=== PATIENT | male | born 1950 | race Caucasian/White ===

== ENCOUNTER 2020-06-24 09:47 | Day surgery (SDC) | payer MEDICARE ==
[~2020-06-24] VITALS: Ht 182.9 cm; Wt 91.6 kg
[~2020-06-24 09:47] MED LIST: ADLT ASA LOW81 MG PO; ADVIL200 MG PO; AMOXICILLIN500 MG OR; AVELOX400 MG PO; CO Q10 MAX200 MG PO; D32000 UNIT PO; FISH OI1 PO; FISH OIL1000 MG PO; LIPITOR40 MG PO; LOSARTAN POT50 MG PO; MULTI 501 PO; NAPROSYN250 MG PO; NORVASC5 M1 PO; OXYCODONE/ACETA1 TAB PO; SLO-NIACIN500 MG PO; TRICOR48 MG PO
[2020-06-24] MEDS ORDERED: PERCOCET 5/325M1 TAB PO (12:18)
[2020-06-24 13:33] VITALS: BP 142/80
== END 2020-06-24 13:20 | disposition home or self-care (01) ==
LOC: ORM 09:47
PROVIDERS: ATTEND Surgery
PROC: 0YU54JZ Supplement Right Inguinal Region with Synthetic Substitute, Percutaneous Endoscopic Approach (ICD-10-PCS; principal; 2020-06-24)
PROC: 0VBF4ZZ Excision of Right Spermatic Cord, Percutaneous Endoscopic Approach (ICD-10-PCS; 2020-06-24)
DX: K40.90 Unilateral inguinal hernia, without obstruction or gangrene, not specified as recurrent (principal); D17.6 Benign lipomatous neoplasm of spermatic cord; I10 Essential (primary) hypertension; Z20.828 Contact with and (suspected) exposure to other viral communicable diseases
CPT/HCPCS: C1781; J0131; J1100

== ENCOUNTER 2020-06-26 00:27 | Emergency (ER) | payer MEDICARE ==
[~2020-06-26] VITALS: Ht 182.9 cm; Wt 92.0 kg
[~2020-06-26 00:27] MED LIST changes: +PERCOCET 5/325M1 TAB PO
[2020-06-26 01:10] VITALS: BP 115/2
== END 2020-06-26 01:14 | disposition home or self-care (01) ==
LOC: ED 00:27
DX: N99.841 Postprocedural hematoma of a genitourinary system organ or structure following other procedure (principal); I10 Essential (primary) hypertension; Y83.8 Other surgical procedures as the cause of abnormal reaction of the patient, or of later complication, without mention of misadventure at the time of the procedure